=== PATIENT | male | born 1990 | race Caucasian/White ===

== ENCOUNTER 2017-11-20 11:56 | Emergency (ER) | payer OTHER ==
[~2017-11-20 11:56] MED LIST: MELO-207 PO; ONDA4TAB PO; PANT40TA65 PO
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
[2017-11-20] MEDS ORDERED: OXYC-865 PO (12:45)
--- NOTE | 2017-11-20 12:49 | RADIOLOGY IMAGING REPORT ---
FACILITY: [facility] - [place] PATIENT NAME: Mateo Buchanan : 1990 MR: [id number] V: [id number] EXAM DATE: ORDERING PHYSICIAN: NATHALIE GODFREY TECHNOLOGIST: Location: [facility] - [place] Patient: Mateo Buchanan : 1990 Visit/Account:[id number] Date of Sevice: 11/20/2017 HAND COMPLETE RIGHT Given history: pain COMPARISON STUDIES: NONE FINDINGS: Osseous structures: There is a transverse fracture through the mid diaphysis of the fifth metacarpa l with 2 mm displacement and 30 degrees apex dorsal angulation. The remaining osseous structures are intact. Joints: normal . Soft tissues: normal . IMPRESSION: Fifth metacarpal shaft fracture as detailed above. Report Dictated By: Ervin Schaefer MD at 11/20/2017 12:43 PM Report E-Signed By: Ervin Schaefer MD at 11/20/2017 12:45 PM WSN:[id number]
[2017-11-20 13:00] VITALS: BP 125/88
== END 2017-11-20 13:36 | disposition home or self-care (01) ==
LOC: ER 12:16
DX: S62.339A Displaced fracture of neck of unspecified metacarpal bone, initial encounter for closed fracture (principal); W51.XXXA Accidental striking against or bumped into by another person, initial encounter
CPT/HCPCS: 99283